=== PATIENT | male | born 1965 | race Two or more races ===

== ENCOUNTER 2017-05-09 07:08 | Day surgery (SDC) | payer OTHER ==
[~2017-05-09] VITALS: Ht 180.3 cm; Wt 136.1 kg
[2017-05-09] VITALS (14 sets, daily range): BP systolic 135–177; BP diastolic 77–96
[~2017-05-09 07:08] MED LIST: CYCLOBENZAPRINE10 MG ORAL; NAPROSYN500 M1 ORAL; ceFAZolin 1gm in D5W 55ml IVP ONE; celeBREX 200mg Cap **SURGERY PATIENTS ONLY ORAL ONE; oxyCONTIN 20mg tab ORAL ONE
--- NOTE | 2017-05-09 07:28 | Pre-Procedure Note/Attestation ---
Pre-Procedure Note/Attestation Complete Prior to Procedure Planned Procedure: right Procedure Narrative: knee arthroscopy medial menisectomy Indications for Procedure Pre-Operative Diagnosis: right knee meniscus tear Attestation I attest that I discussed the nature of the procedure; its benefits; risks and complications; and alternatives (and the risks and benefits of such alternatives ), prior to the procedure, with the patient (or the patient's legal sales representative trainee). I attest that, if there was a reasonable possibility of needing a blood transfusion, the patient (or the patient's legal sales representative trainee) was given the [facility] standardized written summary, pursuant to the Albaro Rodessa Blood Safety Act ([place] Health and Safety Code # 1645, as amended). I attest that I re-evaluated the patient just prior to the surgery and that there has been no change in the patient's H&P, except as documented below: MARIA INES GARZA May 09, 2017 07:28
--- NOTE | 2017-05-09 07:29 | Operative Note - PDOC ---
Operative Note Operative Note Pre-op Diagnosis: right knee meniscus tear Procedure: see op report Post-op Diagnosis: same as pre-op plus Operative Findings: consistent w/pre-op dx studies Anesthesia: MAC Specimen: none Complications: none Condition: stable Estimated Blood Loss: none Implant(s) used?: MARIA INES Castorena May 09, 2017 07:29
[2017-05-09] MEDS ORDERED: Tylenol #3 tab (300mg/30mg) ORAL PRN ×2 (07:30→08:00)
[2017-05-09] MEDS ORDERED: D5 1/2NS 1,000 ML IV SCH (07:30)
[2017-05-09] MEDS ORDERED: Norco 5mg/325mg tab ORAL PRN ×2 (07:30→08:00)
[2017-05-09] MEDS ORDERED: HYDROmorphone 1mg/ml Carpuject SUBQ PRN (07:30)
--- NOTE | 2017-05-09 10:08 | Anethesia Preoperative Eval ---
Anesthesia Pre-op PMH/ROS General Date of Evaluation: May 09, 2017 Anesthesiologist: Quinton ASA Score: ASA 2 Mallampati Score Class I : Soft palate, uvula, fauces, pillars visible Class II: Soft palate, uvula, fauces visible Class III: Soft palate, base of uvula visible Class IV: Only hard plate visible Mallampati Classification: Class III Surgeon: Geoffrey Diagnosis: Right knee derangement Surgical Procedure: Right knee arthroscopy Anesthesia History: none Family History: no anesthesia problems Allergies: Coded Allergies: No Known Allergies (Unverified , 05/08/17) Medications: see eMAR Past Medical History Cardiovascular: Denies: HTN, CAD, ME, valve dz, arrhythmia, other Pulmonary: Denies: asthma, COPD, DELICIA, other Gastrointestinal/Genitourinary: Reports: GERD, Denies: CRI, ESRD, other Neurologic/Psychiatric: Reports: depression/anxiety, Denies: dementia, CVA, TIA, other Endocrine: Denies: DM, hypothyroidism, steroids, other HEENT: Denies: cataract (L), cataract (R), glaucoma, GRINDSTONE (L), GRINDSTONE (R), other Hematology/Immune: Denies: anemia, DVT, bleeding disorder, other Musculoskeletal/Integumentary: Denies: OA, RA, DJD, DDD, edema, other Other: obesity - morbid PSxH Narrative: left leg surgery Anesthesia Pre-op Phys. Exam Physician Exam Last Vital Signs Date Time Temp Pulse Resp B/P (MAP) Pulse Ox O2 Delivery O2 Flow Rate FiO2 05/09/17 07:45 98.1 83 19 135/96 95 Room Air Constitutional: NAD Cardiovascular: RRR Respiratory: other - dimished breath sounds bilaterally Airway Exam Mallampati Score: Class III MO: limited Neck: obese, short ROM: limited Anesthesia Pre-op A/P Labs see chart Studies Pre-op Studies: EKG - sr Risk Assessment & Plan Assessment: ASA II Plan: GA Status Change Before Surgery: No Pre-Antibiotics Drug: Ancef 2g Given Within 1 Hr of Incision: CHAYO Samayoa M.D. May 09, 2017 10:08
[2017-05-09] MEDS ORDERED: Duramorph PF 10mg/10ml amp EPIDUR ONE (11:00)
[2017-05-09] MEDS ORDERED: Propofol 200mg/20ml IV ONE (11:00)
[2017-05-09] MEDS ORDERED: Sterile Water Irrig 1000ml IRRIG ONE (11:00)
[2017-05-09] MEDS ORDERED: LR 1000ml ONE (11:00)
[2017-05-09] MEDS ORDERED: Ketorolac 30mg Inj ONE ×2 (11:00)
[2017-05-09] MEDS: Ketorolac 30mg Inj IV PRN ×2 (11:00→13:32)
[2017-05-09] MEDS ORDERED: Midazolam HCl 50mg/10ml vial IV ONE (11:00)
[2017-05-09] MEDS ORDERED: NS Irrig 4000ml IRRIG ONE (11:00)
[2017-05-09] MEDS ORDERED: Morphine Sulfate PF 10 ML ONE (11:00)
[2017-05-09] MEDS ORDERED: Kenalog-40 1ml Vial ONE (11:00)
[2017-05-09] MEDS ORDERED: fentaNYL 100 mcg/2 mL IV ONE (11:00)
[2017-05-09] MEDS ORDERED: Bupivacaine 0.5% Inj 30 ml vial INJ ONE (11:00)
[2017-05-09] MEDS ORDERED: Lidocaine 1% MPF 10mg/ml 5ml ONE (11:00)
[2017-05-09] MEDS ORDERED: Lidocaine 1% 10mg/ml/EPI 0.01mg/ml 50ml INJ ONE (11:01)
--- NOTE | 2017-05-09 11:20 | 48 Hour Post Anesthesia Eval ---
Post Anesthesia Evaluation Procedure: Right knee arthroscopy Date of Evaluation: May 09, 2017 Airway: patent Nausea: No Vomiting: No Pain Intensity: 0 Hydration Status: adequate Cardiopulmonary Status: atbaseline Mental Status/LOC: patient returned to baseline Post-Anesthesia Complications: 0 Follow-up care needed: ready to discharge CHAYO JAIN M.D. May 09, 2017 11:20
--- NOTE | 2017-05-09 11:20 | Immediate Post-Op Evaluation ---
Immediate Post-Op Evalulation Immediate Post-Op Evalulation Procedure: Right knee arthroscopy Date of Evaluation: May 09, 2017 Time of Evaluation: 11:57 IV Fluids: 1L Blood Products: 0 Estimated Blood Loss: 5 Urinary Output: 0 Blood Pressure Systolic: 161 Blood Pressure Diastolic: 86 Pulse Rate: 82 Respiratory Rate: 17 O2 Sat by Pulse Oximetry: 96 Pain Score (1-10): 0 Nausea: No Vomiting: No Complications 0 Patient Status: awake, reacts, patent, none Hydration Status: adequate Drug: Ancef 2g Given Within 1 Hr of Incision: Yes Time Given: 11:15 CHAYO JAIN M.D. May 09, 2017 11:20
[2017-05-09] MEDS ORDERED: LR 1000ml 1,000 ML IVLG SCH (12:59)
[2017-05-09] MEDS ORDERED: Metoclopramide 10mg/2ml Inj IVP PRN (13:00)
[2017-05-09] MEDS ORDERED: fentaNYL 100 mcg/2 mL IV PRN (13:00)
[2017-05-09] MEDS ORDERED: DiphenhydrAMINE 50mg/ml Inj IVP PRN (13:00)
[2017-05-09] MEDS ORDERED: Hydromorphone 0.5mg/0.5ml inj IVP PRN (13:00)
[2017-05-09] MEDS ORDERED: Midazolam 2mg/2ml Inj IVP PRN (13:00)
[2017-05-09] MEDS ORDERED: Hydromorphone 0.5mg/0.5ml inj ONE (13:00)
--- NOTE | 2017-05-09 23:01 | Operative Note - Dictated ---
DATE OF OPERATION: 05/09/2017 PREOPERATIVE DIAGNOSES: 1. Right knee traumatic medial meniscus tear. 2. Right knee symptomatic medial plica. 3. Right knee hypertrophic synovial tissue of medial, lateral and patellofemoral compartment. POSTOPERATIVE DIAGNOSES: 1. Right knee traumatic medial meniscus tear. 2. Right knee symptomatic medial plica. 3. Right knee hypertrophic synovial tissue of medial, lateral and patellofemoral compartment. 4. Grade 2 chondral damage, trochlear groove. PROCEDURES: 1. Right knee arthroscopic partial medial meniscectomy. 2. Synovectomy in the medial, lateral, patellofemoral compartments and excision of medial plica. 3. Chondroplasty, patellofemoral compartment. SURGEON: Jaylen Rice M.D. ANESTHESIA: MAC. INDICATION FOR THE PROCEDURE: The patient has had a significant injury to his knee. He had an MRI, which showed a meniscal tear. He failed conservative treatment and has significant pain and discomfort, elected to undergo right knee arthroscopic medial meniscectomy. Risks, limitations, expectations and complications of the procedure were discussed in detail. All questions were addressed including infection, nerve or vessel damage, need for future surgery, risk of anesthesia, medical complications, DVT, PE, and mortality risks. All questions were addressed. DESCRIPTION OF PROCEDURE: After informed consent was obtained, the patient was taken to the operative room and placed supine under anesthesia. Ancef was administered. Time-out was performed. The patient's right leg was prepped and draped in a sterile manner. 20 mL of 0.25% Marcaine was injected into the right knee. Portal sites were marked and injected with 1% lidocaine with epinephrine. Inferolateral stab incision was then made and trocar was introduced into the knee joint with significant resistance going to the lateral gutter. Patellofemoral compartment was entered. There was significant hypertrophic synovial tissue. There appeared to be a medial plica. The medial gutter was entered, free of any meniscal chondral damage. Medial compartment was entered and there was a tear of the posterior horn of the medial meniscus. Posterior horn medial meniscectomy was performed using a combination of biters and lauren. The synovectomy in the anterior compartment was completed with better visualization of the anterior horn. Synovectomy was extended into the intercondylar notch of the lateral compartment. ACL was probed and noted to be intact. Lateral compartment was entered and free of any meniscal chondral damage. At this point, the camera was repositioned in the patellofemoral compartment. Synovectomy was completed. Once this was done, there was evidence of grade 2 chondral damage in the trochlear groove. Gentle chondroplasty was performed. Instruments were removed. Portal sites were closed with 3-0 Monocryl sutures. Intraarticular injection containing 0.25% Marcaine with epinephrine, 30 mg of Toradol, 40 mg of Kenalog, and 5 mL of Duramorph was injected. The patient was awoken and taken to recovery room with stable vital signs. ESTIMATED BLOOD LOSS: None. COMPLICATIONS: None. SPECIMENS: None. IMPLANTS: None. Jaylen Rice M.D. DR: ARNAUD JOB#: [id number] CC:
== END 2017-05-09 15:25 | disposition home or self-care (01) ==
LOC: SUR 07:08
DX: S83.241A Other tear of medial meniscus, current injury, right knee, initial encounter (principal); M67.51 Plica syndrome, right knee; K21.9 Gastro-esophageal reflux disease without esophagitis; F32.9 Major depressive disorder, single episode, unspecified; F41.9 Anxiety disorder, unspecified; E66.01 Morbid (severe) obesity due to excess calories; Z68.41 Body mass index [BMI] 40.0-44.9, adult; M67.261 Synovial hypertrophy, not elsewhere classified, right lower leg; X58.XXXA Exposure to other specified factors, initial encounter; Y93.9 Activity, unspecified; Y92.9 Unspecified place or not applicable
CPT/HCPCS: 29876; 29881; 97161; J0690; J1170; J1885; J2274; J2405; J2704; J3010; J3301; J3490; J7120; 94003; 94150